=== PATIENT | male | born 1980 | race Caucasian/White ===

== ENCOUNTER 2019-10-06 17:23 | Emergency (ER) | payer BC, MEDICAID ==
[~2019-10-06] VITALS: Ht 180.3 cm; Wt 124.0 kg
[2019-10-06 17:35] VITALS: BP 130/89
[2019-10-06] MEDS ORDERED: SULF1TAB49 PO (18:07)
[2019-10-06] MEDS ORDERED: TRIA15CR61 TOP (18:11)
== END 2019-10-06 18:44 | disposition home or self-care (01) ==
LOC: ER 17:24
DX: L02.213 Cutaneous abscess of chest wall (principal); R21 Rash and other nonspecific skin eruption; Z88.0 Allergy status to penicillin; Z79.899 Other long term (current) drug therapy
CPT/HCPCS: 99283

== ENCOUNTER 2021-02-20 20:04 | Emergency (ER) | payer MEDICAID ==
[~2021-02-20] VITALS: Ht 180.3 cm; Wt 117.0 kg
[2021-02-20 20:25] VITALS: BP 146/95
[2021-02-20] MEDS ORDERED: LIDOcaine 1% 30ml preserv. free vial IJ ONE (22:25)
[2021-02-21] MEDS ORDERED: SULF1TAB49 PO (00:32)
[2021-02-21] MEDS ORDERED: sulfamethoxazole/trimethoprim DS (800/160mg) tablet PO ONE (00:35)
[2021-02-21] MEDS ORDERED: METF500T PO (00:41)
== END 2021-02-21 00:43 | disposition home or self-care (01) ==
LOC: ER 20:05
DX: L02.414 Cutaneous abscess of left upper limb (principal); E11.9 Type 2 diabetes mellitus without complications; Z88.0 Allergy status to penicillin; Z79.2 Long term (current) use of antibiotics; Z79.899 Other long term (current) drug therapy
CPT/HCPCS: 10060; 99283

== ENCOUNTER 2022-06-16 12:11 | Emergency (ER) | payer MEDICAID ==
[~2022-06-16] VITALS: Ht 180.3 cm; Wt 115.0 kg
[2022-06-16 12:42] VITALS: BP 120/85
[2022-06-16] MEDS ORDERED: CARB15DR91 LEFT EAR (14:18)
[2022-06-16] MEDS ORDERED: SODI30SP3 BOTHNARES (14:18)
== END 2022-06-16 14:45 | disposition home or self-care (01) ==
LOC: ER 12:12
DX: H61.23 Impacted cerumen, bilateral (principal); J06.9 Acute upper respiratory infection, unspecified; Z88.0 Allergy status to penicillin; Z79.899 Other long term (current) drug therapy
CPT/HCPCS: 69210; 99284; 99285

== ENCOUNTER 2022-07-19 16:01 | Emergency (ER) | payer MEDICAID ==
[~2022-07-19] VITALS: Ht 180.3 cm; Wt 104.5 kg
[~2022-07-19 16:01] MED LIST: CARB15DR91 LEFT EAR; SODI30SP3 BOTHNARES
[2022-07-19 17:59] LABS: BASOPHILS % (AUTO) 0.4 % (0-1); EOSINOPHILS # (AUTO) 0.3 X10'3 (0-0.9); EOSINOPHILS % (AUTO) 2.8 % (0-6); HEMATOCRIT 43.3 % (42.0-52.0); HEMOGLOBIN 14.6 g/dl (14.0-17.9); LYMPHOCYTES % (AUTO) 16.2 % (21-51); MEAN CORPUSCULAR HEMOGLOBIN 29.2 PG (27.0-31.0); MEAN CORPUSCULAR HGB CONC 33.8 g/dL (33.0-36.5); MEAN CORPUSCULAR VOLUME 86.3 FL (78-98); MONOCYTES # (AUTO) 0.8 X10'3 (0-0.9); MONOCYTES % (AUTO) 6.9 % (2-12); NEUTROPHILS % (AUTO) 73.7 % (42-75); PLATELET COUNT 121 X10'3 (140-440); RED BLOOD COUNT 5.02 X10'6 (4.70-6.10); RED CELL DISTRIBUTION WIDTH 14.3 % (11.5-14.5); WHITE BLOOD COUNT 12.2 X10'3 (4.5-11.0)
[2022-07-19 18:19] LABS: ALANINE AMINOTRANSFERASE 21 U/L (12-78); ALBUMIN 3.9 G/DL (3.4-5.0); ALBUMIN/GLOBULIN RATIO 1.2 (1.1-1.5); ALKALINE PHOSPHATASE 58 IU/L (46-116); ANION GAP 9 (8-16); ASPARTATE AMINO TRANSFERASE 9 U/L (10-37); BILIRUBIN,TOTAL 0.7 MG/DL (0.1-1.0); BLOOD UREA NITROGEN 12 MG/DL (7-18); CALCIUM 9.1 MG/DL (8.5-10.1); CHLORIDE 104 MMOL/L (99-107); CREATININE 0.92 MG/DL (0.60-1.10); GLUCOSE 231 MG/DL (70-104); POTASSIUM 3.9 MMOL/L (3.5-5.1); SODIUM 138 MMOL/L (135-145); TOTAL CARBON DIOXIDE 24.7 MMOL/L (24-32); TOTAL PROTEIN 7.2 G/DL (6.4-8.2); eGFR > 90 ML/MIN
[2022-07-19 19:00] LABS: ETHANOL < 0.010 GM/DL (0.0-0.010)
[2022-07-19 19:05] LABS: CLARITY,URINE CLEAR (Clear); COLOR,URINE YELLOW (Yellow); GLUCOSE, URINE 500 mg/dl (Neg); KETONES,URINE NEGATIVE (Neg); LEUKOCYTE ESTERASE ,URINE NEGATIVE (Neg); NITRITES, URINE NEGATIVE (Neg); OCCULT BLOOD,URINE NEGATIVE (Neg); PH,URINE 5.5 (4.8-8.0); PROTEIN,URINE TRACE mg/dl (Neg); UROBILINOGEN,URINE 0.2 E.U/dL (0.2-1.0)
[2022-07-19 19:10] LABS: UA COLLECTION TYPE NON-SPECIFIED
[2022-07-19 19:11] LABS: RBC,URINE 0-2 /HPF (0-2); WBC,URINE 0-4 /HPF (0-4)
[2022-07-19 19:12] LABS: BACTERIA,URINE FEW /HPF (Neg); FINE GRANULAR CAST 0-3 /LPF (NEGATIVE); MUCUS STRANDS NONE SEEN /LPF (Neg); SQUAMOUS EPITHELIAL CELL,UR FEW /LPF (FEW); URINE AMPHETAMINE SCREEN NEGATIVE (Neg); URINE BARBITUATE SCREEN NEGATIVE (Neg); URINE BENZODIAZEPINES SCREEN NEGATIVE (Neg); URINE CANNABINOID SCREEN NEGATIVE (Neg); URINE COCAINE SCREEN NEGATIVE (Neg); URINE METHADONE SCREEN NEGATIVE (Neg); URINE OPIATE SCREEN NEGATIVE (Neg); URINE PHENCYCLIDINE SCREEN NEGATIVE (Neg)
[2022-07-19 19:14] LABS: LARGE PLATELETS FEW; PLATELET ESTIMATE DECREASED
[2022-07-19] MEDS ORDERED: acetaminophen 325mg tablet PO ONE (19:20)
--- NOTE | 2022-07-19 21:37 | NUR ---
pt agitated Dr Echeverria talked with pt about hold and that someone from [facility] will be talking with him in the morning, pt given more warm blankets and a pillow. pt is now calm at the present Addendum: 07/19/22 at 2231 by JASON charted in error
--- NOTE | 2022-07-19 21:37 | NUR ---
pt agitated, talking with MD, pt advised that at this time that he will see Rosemary will see pt in the morning, pt given 3 warm blankets at this time. pt has also been given a sandwhich and juice and tolerated food with no difficulty.
--- NOTE | 2022-07-19 22:31 | NUR ---
pt sleeping, no distress noted at this time
--- NOTE | 2022-07-19 23:47 | NUR ---
pt sleeping no distress noted.
--- NOTE | 2022-07-20 00:36 | NUR ---
pt given sandwhich, juice and water, pt calm, speech normal, no thoughts of hurting self or others at this time.
--- NOTE | 2022-07-20 03:56 | NUR ---
pt sleeping, breathing even and unlabored at this time.
--- NOTE | 2022-07-20 04:00 | NUR ---
packet faxed top [facility]
--- NOTE | 2022-07-20 06:30 | NUR ---
Received pt. sleeping at the beginning of the shift, rise and fall of chest noted.
[2022-07-20] MEDS ORDERED: metFORMIN 500mg tablet PO SCH (07:00)
--- NOTE | 2022-07-20 07:53 | NUR ---
Pt's mother in to visit : Jasmyne . She would like to be called with any updates or when pt. is discharged as she plans to pick him up. Per pt's mother, pt. has been trying to get connected with counseling services, will endorse to [facility].
--- NOTE | 2022-07-20 08:30 | NUR ---
Pt. was sitting up in bed and cooperative with MH assessement completed by this sheet writer. He currently denies any S/I. However he does admit to having some S/I yesterday with thoughts of shooting himself. Pt. reports he does not have any access to weapons, and states, "My uncle has guns but they are all locked up." He goes on in a somewhat hyperverbal manner to talk about current stressors in his life regarding a current divorce, the previous of one of his sons, difficulty finding housing, and difficulty finding counseling services. Pt. states, "It just all became too much yesterday, but I feel fine now. It's a mistake that I'm here."
--- NOTE | 2022-07-20 09:24 | NUR ---
Med Recc completed with pt. by this commercial lines underwriter and per pt., he only takes Metformin 500mg Q AM and checks his BS Q AM prior to eating. Will endorse to Dr. Mac.
--- NOTE | 2022-07-20 10:32 | NUR ---
Pt. is sitting up in bed quietly at this time.
--- NOTE | 2022-07-20 11:32 | NUR ---
[facility] at bedside.
--- NOTE | 2022-07-20 12:19 | NUR ---
Per [facility], pt. will be discharged home with his mother who will be picking him up.
--- NOTE | 2022-07-20 12:23 | NUR ---
Pt. is sitting up in bed at this time, preparing for discharge.
--- NOTE | 2022-07-20 13:08 | NUR ---
Pt. was discharged home with his family who will be driving him. This group underwriter reviewed discharge instructions with pt. and he reported understanding. Tech reviewed pt's belongings with him and these items were returned to pt. Pt. is able to contract for safety.
[2022-07-20 13:13] VITALS: BP 110/59
[2022-07-21] MEDS ORDERED: metFORMIN 500mg tablet PO SCH (08:00)
== END 2022-07-20 13:39 ==
LOC: ER 16:01
DX: R45.851 Suicidal ideations (principal); F32.A Depression, unspecified
CPT/HCPCS: 36415; 80053; 80305; 80320; 81001; 82948; 84443; 85008; 85025; 99285

== ENCOUNTER 2023-08-13 14:30 | Emergency (ER) | payer MEDICAID ==
[~2023-08-13] VITALS: Ht 180.3 cm; Wt 122.5 kg
[2023-08-13 17:03] LABS: BASOPHILS % (AUTO) 0.2 % (0-1); EOSINOPHILS # (AUTO) 0.2 X10'3 (0-0.9); EOSINOPHILS % (AUTO) 2.1 % (0-6); HEMATOCRIT 43.7 % (42.0-52.0); HEMOGLOBIN 14.6 g/dl (14.0-17.9); LYMPHOCYTES # (AUTO) 1.3 X10'3 (1.1-4.8); MEAN CORPUSCULAR HEMOGLOBIN 29.2 PG (27.0-31.0); MEAN CORPUSCULAR HGB CONC 33.5 g/dL (33.0-36.5); MEAN CORPUSCULAR VOLUME 87.2 FL (78-98); MEAN PLATELET VOLUME 10.7 FL (7.4-10.4); MONOCYTES # (AUTO) 0.4 X10'3 (0-0.9); MONOCYTES % (AUTO) 4.9 % (2-12); NEUTROPHILS # (AUTO) 6.8 X10'3 (1.8-7.7); NEUTROPHILS % (AUTO) 77.8 % (42-75); PLATELET COUNT 125 X10'3 (140-440); RED BLOOD COUNT 5.01 X10'6 (4.70-6.10); RED CELL DISTRIBUTION WIDTH 14.2 % (11.5-14.5); WHITE BLOOD COUNT 8.8 X10'3 (4.5-11.0)
[2023-08-13 17:12] LABS: ALANINE AMINOTRANSFERASE 33 U/L (12-78); ALBUMIN 4.3 G/DL (3.4-5.0); ALBUMIN/GLOBULIN RATIO 1.3 (1.1-1.5); ALKALINE PHOSPHATASE 58 IU/L (46-116); ANION GAP 8 (8-16); ASPARTATE AMINO TRANSFERASE 15 U/L (10-37); BILIRUBIN,TOTAL 0.7 MG/DL (0.1-1.0); BLOOD UREA NITROGEN 10 MG/DL (7-18); CALCIUM 8.9 MG/DL (8.5-10.1); CHLORIDE 102 MMOL/L (99-107); CREATININE 0.77 MG/DL (0.60-1.10); GLUCOSE 163 MG/DL (70-104); LIPASE 42 U/L (16-77); POTASSIUM 3.8 MMOL/L (3.5-5.1); SODIUM 139 MMOL/L (135-145); TOTAL CARBON DIOXIDE 28.9 MMOL/L (24-32); TOTAL PROTEIN 7.7 G/DL (6.4-8.2); eCRCL 134 ML/MIN; eGFR > 90 ML/MIN
[2023-08-13 17:48] LABS: PLATELET ESTIMATE DECREASED
[2023-08-13 17:49] LABS: LARGE PLATELETS FEW
[2023-08-13] MEDS ORDERED: acetaminophen 325mg tablet PO ONE (20:05)
[2023-08-13] MEDS ORDERED: ondansetron 4mg rapidly disintigrating tab PO ONE (20:05)
[2023-08-13 20:11] VITALS: BP 156/80; PULSE 71; RESP 18; TEMP 98.4; O2SAT 98
[2023-08-13] MEDS ORDERED: ketorolac tromethamine 15mg/ml inj. IM ONE (20:15)
[2023-08-13 20:18] LABS: BILIRUBIN,URINE NEGATIVE (Neg); CLARITY,URINE SLIGHTLY CLOUDY (Clear); COLOR,URINE YELLOW (Yellow); GLUCOSE, URINE NEGATIVE (Neg); KETONES,URINE 15 mg/dl (Neg); LEUKOCYTE ESTERASE ,URINE NEGATIVE (Neg); NITRITES, URINE NEGATIVE (Neg); OCCULT BLOOD,URINE NEGATIVE (Neg); PH,URINE 5.5 (4.8-8.0); PROTEIN,URINE NEGATIVE (Neg); UROBILINOGEN,URINE 0.2 E.U/dL (0.2-1.0)
[2023-08-13 20:23] LABS: UA COLLECTION TYPE NON-SPECIFIED
[2023-08-13 20:26] LABS: BACTERIA,URINE FEW /HPF (Neg); MUCUS STRANDS MODERATE /LPF (Neg); RBC,URINE 0-2 /HPF (0-2); SQUAMOUS EPITHELIAL CELL,UR FEW /LPF (FEW); WBC,URINE 0-4 /HPF (0-4)
[2023-08-13 20:27] LABS: CELLULAR CAST 0-4 /LPF (NEGATIVE); HYALINE CASTS 0-3 /LPF (NEGATIVE); TRANSITIONAL EPI CELLS,URINE MODERATE /HPF
[2023-08-13] MEDS ORDERED: normal saline 1000ml 1,000 ML IV ONE (20:40)
[2023-08-13] MEDS ORDERED: ONDA4TAB12 PO (20:51)
== END 2023-08-13 22:18 | disposition home or self-care (01) ==
LOC: ER 14:31
DX: R51.9 Headache, unspecified (principal); R11.2 Nausea with vomiting, unspecified; H53.149 Visual discomfort, unspecified; E11.9 Type 2 diabetes mellitus without complications; Z88.0 Allergy status to penicillin; Z79.899 Other long term (current) drug therapy
CPT/HCPCS: 36415; 80053; 81001; 82948; 83690; 85008; 85025; 96372; 99283; J1885

== ENCOUNTER 2023-12-26 10:33 | Inpatient (IN) | payer MEDICAID ==
[~2023-12-26] VITALS: Ht 180.3 cm; Wt 134.0 kg
[~2023-12-26 10:33] MED LIST changes: +AMLO5TAB16 PO; +ASPI-1071 PO; +ATOR10TA PO; -CARB15DR91 LEFT EAR; +CLOP75TA34 PO; +ESCI-8 PO; +LISI10TA27 PO; +METF-517 PO; -SODI30SP3 BOTHNARES
[2023-12-26] MEDS: ondansetron 4mg rapidly disintigrating tab PO ONE (11:52)
[2023-12-26 12:11] LABS: BASOPHILS # (AUTO) 0.1 X10'3 (0-0.2); BASOPHILS % (AUTO) 0.7 % (0-1); EOSINOPHILS % (AUTO) 0.3 % (0-6); HEMOGLOBIN 12.8 g/dl (14.0-17.9); LYMPHOCYTES # (AUTO) 1.1 X10'3 (1.1-4.8); LYMPHOCYTES % (AUTO) 6.1 % (21-51); MEAN CORPUSCULAR HEMOGLOBIN 29.5 PG (27.0-31.0); MEAN CORPUSCULAR HGB CONC 32.7 g/dL (33.0-36.5); MEAN CORPUSCULAR VOLUME 90.2 FL (78-98); MEAN PLATELET VOLUME 10.1 FL (7.4-10.4); MONOCYTES # (AUTO) 1.5 X10'3 (0-0.9); MONOCYTES % (AUTO) 8.6 % (2-12); NEUTROPHILS # (AUTO) 14.9 X10'3 (1.8-7.7); NEUTROPHILS % (AUTO) 84.3 % (42-75); PLATELET COUNT 185 X10'3 (140-440); RED BLOOD COUNT 4.33 X10'6 (4.70-6.10); RED CELL DISTRIBUTION WIDTH 14.4 % (11.5-14.5); WHITE BLOOD COUNT 17.6 X10'3 (4.5-11.0)
[2023-12-26 12:24] LABS: ALKALINE PHOSPHATASE 73 IU/L (46-116); ANION GAP 11 (8-16); ASPARTATE AMINO TRANSFERASE 7 U/L (10-37); BILIRUBIN,DIRECT 0.1 MG/DL (0-0.3); BILIRUBIN,TOTAL 0.5 MG/DL (0.1-1.0); BLOOD UREA NITROGEN 29 MG/DL (7-18); BUN/CREATININE RATIO 27.1 (10.0-20.0); CALCIUM 8.3 MG/DL (8.5-10.1); CHLORIDE 89 MMOL/L (99-107); CREATININE 1.07 MG/DL (0.60-1.10); LIPASE 18 U/L (16-77); POTASSIUM 4.3 MMOL/L (3.5-5.1); SODIUM 122 MMOL/L (135-145); TOTAL PROTEIN 7.6 G/DL (6.4-8.2); eCRCL 97 ML/MIN; eGFR 76 ML/MIN
[2023-12-26 12:29] LABS: ALANINE AMINOTRANSFERASE 14 U/L (12-78)
[2023-12-26 12:36] LABS: GLUCOSE 443 MG/DL (70-104)
[2023-12-26 13:06] LABS: ALBUMIN 2.7 G/DL (3.4-5.0); ALBUMIN/GLOBULIN RATIO 0.6 (1.1-1.5)
[2023-12-26] MEDS: normal saline 1000ML IV soln IVB ONE (14:09)
[2023-12-26] MEDS: diphenhydrAMINE 50 mg/ml inj IV ONE (14:09)
[2023-12-26] MEDS: morphine 4 MG/ML inj SYRINge IV ONE (14:10)
[2023-12-26] MEDS: proCHLORperazine 10 MG/2 ml inj IV ONE (14:10)
[2023-12-26 14:16] LABS: ACETONE SMALL (NEGATIVE)
[2023-12-26] MEDS: normal saline 1000ml 1,000 ML IV ONE ×2 (14:20→15:40)
[2023-12-26] MEDS: Insulin ASPART (NovoLOG) pen SQ ONE (14:34)
[2023-12-26 14:35] LABS: BILIRUBIN,URINE NEGATIVE (Neg); CLARITY,URINE CLEAR (Clear); COLOR,URINE YELLOW (Yellow); GLUCOSE, URINE >=1000 mg/dl (Neg); KETONES,URINE 15 mg/dl (Neg); LEUKOCYTE ESTERASE ,URINE NEGATIVE (Neg); NITRITES, URINE NEGATIVE (Neg); OCCULT BLOOD,URINE NEGATIVE (Neg); PROTEIN,URINE NEGATIVE (Neg); UROBILINOGEN,URINE 0.2 E.U/dL (0.2-1.0)
[2023-12-26] MEDS: INSULIN LISPRO 100 UNIT/ML INSULN.PEN MULTI-DOSE SQ ONE ×2 (14:42→17:17)
[2023-12-26 14:49] LABS: UA COLLECTION TYPE CLN CATCH MIDSTREAM
[2023-12-26 14:54] LABS: BACTERIA,URINE 1+ /HPF (Neg); RBC,URINE 0-2 /HPF (0-2); SQUAMOUS EPITHELIAL CELL,UR FEW /LPF (FEW); WBC,URINE 0-4 /HPF (0-4)
[2023-12-26] MEDS ORDERED: CefTRIAXone 2gm/D5W 50ml BAG 50 ML IV SCH (15:55)
[2023-12-26] MEDS: azithromycin/NS 500mg/250ml 250 ML IV ONE (16:09)
[2023-12-26] MEDS: CefTRIAXone 2gm/D5W 50ml BAG 50 ML IV ONE (16:09)
[2023-12-26] MEDS ORDERED: magnesium 2GM in 50ml NS 50 ML IV PRN (16:15)
[2023-12-26] MEDS ORDERED: glucagon, human recombinant 1mg kit SUBCUT PRN (16:15)
[2023-12-26] MEDS ORDERED: acetaminophen 325mg tablet PO PRN ×2 (16:15)
[2023-12-26] MEDS ORDERED: DEXTROSE 15 GM of carb/4 tabs (each vial/BOTTLE has 4 tablets) PO PRN ×2 (16:15)
[2023-12-26] MEDS ORDERED: magnesium 4gm in 100ml NS 100 ML IV PRN (16:15)
[2023-12-26] MEDS ORDERED: dextrose 50%-water 50ml dispensing syringe IV PRN ×2 (16:15)
[2023-12-26] MEDS ORDERED: potassium Cl 20 mEq SR tablet PO PRN ×2 (16:15)
[2023-12-26] MEDS ORDERED: ondansetron/PF 4mg/2ml inj IV PRN (16:15)
[2023-12-26] MEDS ORDERED: magnesium hydroxide 30ml (MOM) UD suspension PO PRN (16:15)
[2023-12-26] MEDS ORDERED: proCHLORperazine 10 MG/2 ml inj IV PRN (16:15)
[2023-12-26] MEDS ORDERED: potassium Cl 40MEQ/1/2NS 520ml 520 ML IV PRN (16:15)
[2023-12-26] MEDS ORDERED: mag hydrox/Alum hydrox/simeth 30ml oral suspension PO PRN (16:15)
[2023-12-26] MEDS ORDERED: HYDROcodone/acetaminophen 5mg/325mg tablet PO PRN (16:15)
[2023-12-26] MEDS: normal saline 1000ml 1,000 ML IV SCH (16:40)
[2023-12-26] MEDS: INSULIN LISPRO 100 UNIT/ML INSULN.PEN MULTI-DOSE SQ SCH (16:51)
[2023-12-26] MEDS: HYDROmorphone 1 mg/ml syringe IV PRN (17:18)
[2023-12-26] MEDS ORDERED: CHLO25TA10 PO (17:46)
[2023-12-26] MEDS: K and/or MAG REPLACEMENT MC SCH (20:00)
[2023-12-26] MEDS: docusate sod 100mg capsule PO SCH (20:00)
[2023-12-26] MEDS: enoxaparin 40mg/0.4ml syringe SQ SCH (20:44)
[2023-12-26] MEDS: diatr meglu/diatrizoate 30ml oral sol.-(3 dose) bottle PO SCH (21:53)
[2023-12-26] MEDS: insulin glargine (Lantus) pen - multi-dose SQ SCH (22:12)
[2023-12-26] MEDS: HYDROmorphone inj. 0.5 MG/0.5 ML DISP.SYRIN IV PRN (22:16)
[2023-12-26 23:55] VITALS: BP 96/56; PULSE 81; RESP 16; TEMP 98; O2SAT 93
[2023-12-27 00:30] VITALS: RESP 18; O2SAT 93
[2023-12-27 06:00] VITALS: BP 103/59; PULSE 105; RESP 18; TEMP 99.2; O2SAT 93
[2023-12-27] MEDS: HYDROcodone/acetaminophen 10/325mg tab PO PRN (06:10)
[2023-12-27 08:17] LABS: BASOPHILS % (AUTO) 0.3 % (0-1); EOSINOPHILS # (AUTO) 0.1 X10'3 (0-0.9); EOSINOPHILS % (AUTO) 0.6 % (0-6); HEMATOCRIT 31.9 % (42.0-52.0); HEMOGLOBIN 10.7 g/dl (14.0-17.9); LYMPHOCYTES # (AUTO) 1.5 X10'3 (1.1-4.8); LYMPHOCYTES % (AUTO) 9.5 % (21-51); MEAN CORPUSCULAR HEMOGLOBIN 29.7 PG (27.0-31.0); MEAN CORPUSCULAR HGB CONC 33.4 g/dL (33.0-36.5); MEAN CORPUSCULAR VOLUME 88.8 FL (78-98); MEAN PLATELET VOLUME 10.3 FL (7.4-10.4); MONOCYTES # (AUTO) 2.1 X10'3 (0-0.9); MONOCYTES % (AUTO) 12.6 % (2-12); NEUTROPHILS # (AUTO) 12.6 X10'3 (1.8-7.7); PLATELET COUNT 158 X10'3 (140-440); RED CELL DISTRIBUTION WIDTH 14.3 % (11.5-14.5); WHITE BLOOD COUNT 16.4 X10'3 (4.5-11.0)
[2023-12-27 09:06] LABS: ALANINE AMINOTRANSFERASE 8 U/L (12-78); ALBUMIN 2.2 G/DL (3.4-5.0); ALBUMIN/GLOBULIN RATIO 0.6 (1.1-1.5); ALKALINE PHOSPHATASE 60 IU/L (46-116); ANION GAP 7 (8-16); ASPARTATE AMINO TRANSFERASE 4 U/L (10-37); BILIRUBIN,TOTAL 0.4 MG/DL (0.1-1.0); BLOOD UREA NITROGEN 32 MG/DL (7-18); BUN/CREATININE RATIO 30.2 (10.0-20.0); CALCIUM 7.5 MG/DL (8.5-10.1); CHLORIDE 94 MMOL/L (99-107); CREATININE 1.06 MG/DL (0.60-1.10); GLUCOSE 265 MG/DL (70-104); MAGNESIUM 1.9 MG/DL (1.5-2.4); POTASSIUM 3.8 MMOL/L (3.5-5.1); SODIUM 127 MMOL/L (135-145); TOTAL PROTEIN 6.2 G/DL (6.4-8.2); eCRCL 98 ML/MIN; eGFR 77 ML/MIN
[2023-12-27 09:12] LABS: HEMOGLOBIN A1C 9.7 % (4.5-6.2)
[2023-12-27 09:15] VITALS: RESP 18; O2SAT 95
[2023-12-27] MEDS: lisinopril 10 MG tablet PO SCH (09:25)
[2023-12-27] MEDS: CefTRIAXone/D5W-Rocephin 1gm 50 ML IV SCH (09:34)
[2023-12-27] MEDS: aspirin 81mg, enteric-coated 1 TAB TABLET.DR PO SCH (09:38)
[2023-12-27] MEDS: ESCITALOPRAM 10 mg tablet 10 MG TABLET PO SCH (09:44)
[2023-12-27 10:00] VITALS: BP 108/64; PULSE 86; RESP 18; TEMP 97.8; O2SAT 96
[2023-12-27] MEDS: azithromycin/NS 500mg/250ml 250 ML IV SCH (11:28)
[2023-12-27] MEDS ORDERED: iohexol 300mg/ml 100ml inj. ONE (11:55)
[2023-12-27] MEDS: metroNIDAZOLE-Flagyl 500mg/NS 100 ML IV SCH (16:33)
[2023-12-27 18:00] VITALS: BP 109/70; PULSE 92; RESP 16; TEMP 97.9; O2SAT 93
[2023-12-27] MEDS: MESSAGE TO NURSING PO ONE ×3 (18:00)
[2023-12-27] MEDS: MESSAGE TO PHARMACY IJ ONE (18:00)
[2023-12-27 19:39] LABS: APTT 29 SECONDS (22-32); INR 1.1 INR; PROTHROMBIN TIME 11.9 SECONDS (9.0-12.0)
[2023-12-27 22:00] VITALS: BP 111/72; PULSE 98; RESP 16; TEMP 98.4; O2SAT 94
[2023-12-28] VITALS (16 sets, daily range): BP systolic 101–187; BP diastolic 58–104; PULSE 92–119; RESP 12–32; TEMP 98.4–98.8; O2SAT 94–99
[2023-12-28 06:21] LABS: BASOPHILS # (AUTO) 0.1 X10'3 (0-0.2); BASOPHILS % (AUTO) 0.3 % (0-1); EOSINOPHILS # (AUTO) 0.2 X10'3 (0-0.9); EOSINOPHILS % (AUTO) 1.1 % (0-6); HEMATOCRIT 34.4 % (42.0-52.0); HEMOGLOBIN 11.3 g/dl (14.0-17.9); LYMPHOCYTES # (AUTO) 1.4 X10'3 (1.1-4.8); LYMPHOCYTES % (AUTO) 8.1 % (21-51); MEAN CORPUSCULAR HEMOGLOBIN 29.5 PG (27.0-31.0); MEAN CORPUSCULAR HGB CONC 32.9 g/dL (33.0-36.5); MEAN CORPUSCULAR VOLUME 89.6 FL (78-98); MEAN PLATELET VOLUME 10.4 FL (7.4-10.4); MONOCYTES % (AUTO) 11.3 % (2-12); NEUTROPHILS # (AUTO) 13.8 X10'3 (1.8-7.7); NEUTROPHILS % (AUTO) 79.2 % (42-75); PLATELET COUNT 188 X10'3 (140-440); RED BLOOD COUNT 3.84 X10'6 (4.70-6.10); RED CELL DISTRIBUTION WIDTH 14.3 % (11.5-14.5); WHITE BLOOD COUNT 17.4 X10'3 (4.5-11.0)
[2023-12-28] MEDS: mupirocin 2% nasal ointment 1gm UD NS SCH ×2 (07:00→22:00)
[2023-12-28 07:06] LABS: ALANINE AMINOTRANSFERASE 12 U/L (12-78); ALBUMIN 2.2 G/DL (3.4-5.0); ALBUMIN/GLOBULIN RATIO 0.5 (1.1-1.5); ALKALINE PHOSPHATASE 108 IU/L (46-116); ANION GAP 8 (8-16); ASPARTATE AMINO TRANSFERASE 5 U/L (10-37); BILIRUBIN,TOTAL 0.5 MG/DL (0.1-1.0); BLOOD UREA NITROGEN 23 MG/DL (7-18); BUN/CREATININE RATIO 27.1 (10.0-20.0); CALCIUM 7.3 MG/DL (8.5-10.1); CHLORIDE 93 MMOL/L (99-107); CREATININE 0.85 MG/DL (0.60-1.10); GLUCOSE 215 MG/DL (70-104); MAGNESIUM 2.1 MG/DL (1.5-2.4); POTASSIUM 3.8 MMOL/L (3.5-5.1); SODIUM 128 MMOL/L (135-145); TOTAL CARBON DIOXIDE 26.7 MMOL/L (24-32); TOTAL PROTEIN 6.5 G/DL (6.4-8.2); eCRCL 122 ML/MIN; eGFR > 90 ML/MIN
[2023-12-28] MEDS: MESSAGE TO NURSING PO ONE (09:46)
[2023-12-28] MEDS: MESSAGE TO NURSING IV SCH (09:46)
[2023-12-28] MEDS: insulin glargine (Lantus) pen - multi-dose SQ ONE (11:02)
[2023-12-28] MEDS ORDERED: MIDAZolam 1 MG/ML 5ML VIAL ONE (18:24)
[2023-12-28] MEDS ORDERED: fentaNYL /PF 50mcg/ml 5ml ampule ONE (18:24)
[2023-12-28] MEDS ORDERED: rocuronium 10mg/ml inj IV ONE ×2 (18:25)
[2023-12-28] MEDS ORDERED: propofol inj 20 ML IV ONE (18:25)
[2023-12-28] MEDS ORDERED: sevoflurane 250ml liquid IH ONE (18:28)
[2023-12-28] MEDS ORDERED: ringers solution, lacted 1,000 ML IV SCH (19:45)
[2023-12-28] MEDS ORDERED: ondansetron/PF 4mg/2ml inj IV PRN (19:45)
[2023-12-28] MEDS ORDERED: HYDROmorphone/PF 0.2 MG/ML SYRINGE IV PRN ×2 (19:45)
[2023-12-28] MEDS ORDERED: morphine 2 MG/ML inj. syringe IV PRN (19:45)
[2023-12-28] MEDS ORDERED: morphine 4 MG/ML inj SYRINge IV PRN (19:45)
[2023-12-28] MEDS ORDERED: metroNIDAZOLE-Flagyl 500mg/NS 100 ML IV ONE (20:33)
[2023-12-28] MEDS ORDERED: CefTRIAXone 2000mg inj ONE (20:33)
[2023-12-28] MEDS: atorvastatin 10mg tablet PO SCH (21:00)
[2023-12-28] MEDS ORDERED: insulin glargine (Lantus) pen - multi-dose SQ SCH (21:00)
[2023-12-28] MEDS ORDERED: magnesium hydroxide 30ml (MOM) UD suspension PO PRN (21:40)
[2023-12-28] MEDS ORDERED: insulin glargine (Lantus) pen - multi-dose SQ PRN (21:40)
[2023-12-28] MEDS ORDERED: potassium Cl 40MEQ/1/2NS 520ml 520 ML IV PRN (21:40)
[2023-12-28] MEDS ORDERED: Neutra Phos packet PO PRN (21:40)
[2023-12-28] MEDS ORDERED: HYDROcodone/acetaminophen 10/325mg tab PO PRN (21:40)
[2023-12-28] MEDS ORDERED: niCARDipine-NS 40mg/200ml IVPB 200 ML IV PRN ×2 (21:40→22:05)
[2023-12-28] MEDS ORDERED: magnesium 4gm in 100ml NS 100 ML IV PRN (21:40)
[2023-12-28] MEDS ORDERED: metoclopramide 5 mg/ml inj IV PRN (21:40)
[2023-12-28] MEDS ORDERED: sodium phosphate inj. 30 MMOL in dextrose 5%-water 250 ML IV PRN (21:40)
[2023-12-28] MEDS ORDERED: potassium Cl 20 mEq SR tablet PO PRN (21:40)
[2023-12-28] MEDS ORDERED: mineral oil 133ml enema RC PRN (21:40)
[2023-12-28] MEDS ORDERED: potassium CL 10mEq/100ml bag 100 ML IV PRN (21:40)
[2023-12-28] MEDS ORDERED: sodium phosphate inj. 15 MMOL in dextrose 5%-water 250 ML IV PRN (21:40)
[2023-12-28] MEDS ORDERED: dextrose 50%-water 50ml dispensing syringe IV PRN (21:40)
[2023-12-28] MEDS: metroNIDAZOLE-Flagyl 500mg/NS 100 ML IV SCH (21:40)
[2023-12-28] MEDS ORDERED: bisacodyl 10mg suppository rectal RC PRN (21:40)
[2023-12-28] MEDS ORDERED: acetaminophen 325mg tablet PO PRN (21:40)
[2023-12-28] MEDS ORDERED: FENTANYL-0.9 % NACL/PF 100 ML IV SCH (21:50)
[2023-12-28] MEDS: propofol 1000mg/100ml bottle 100 ML IV SCH (21:50)
[2023-12-28] MEDS: propofol 1000mg/100ml bottle 100 ML IV ONE (21:58)
[2023-12-28] MEDS ORDERED: dexmedetomidine inj. 400 MCG in normal saline 100ml IV soln 96 ML IV SCH (22:10)
[2023-12-28 22:32] LABS: BASOPHILS # (AUTO) 0.1 X10'3 (0-0.2); BASOPHILS % (AUTO) 0.3 % (0-1); EOSINOPHILS # (AUTO) 0.2 X10'3 (0-0.9); EOSINOPHILS % (AUTO) 1.1 % (0-6); HEMATOCRIT 32.1 % (42.0-52.0); HEMOGLOBIN 10.5 g/dl (14.0-17.9); LYMPHOCYTES # (AUTO) 1.6 X10'3 (1.1-4.8); LYMPHOCYTES % (AUTO) 8.7 % (21-51); MEAN CORPUSCULAR HEMOGLOBIN 29.3 PG (27.0-31.0); MEAN CORPUSCULAR HGB CONC 32.8 g/dL (33.0-36.5); MEAN CORPUSCULAR VOLUME 89.2 FL (78-98); MEAN PLATELET VOLUME 9.4 FL (7.4-10.4); MONOCYTES # (AUTO) 1.7 X10'3 (0-0.9); NEUTROPHILS # (AUTO) 15.3 X10'3 (1.8-7.7); NEUTROPHILS % (AUTO) 80.9 % (42-75); PLATELET COUNT 216 X10'3 (140-440); RED CELL DISTRIBUTION WIDTH 14.6 % (11.5-14.5); WHITE BLOOD COUNT 18.9 X10'3 (4.5-11.0)
[2023-12-28] MEDS: dexmedetomidine inj. 400 MCG in normal saline 100ml IV soln 96 ML IV PRN (22:32)
[2023-12-28] MEDS: niCARDipine-NS 40mg/200ml IVPB 200 ML IV ONE (22:35)
[2023-12-28 22:42] LABS: ALANINE AMINOTRANSFERASE 8 U/L (12-78); ALBUMIN 2.2 G/DL (3.4-5.0); ALBUMIN/GLOBULIN RATIO 0.6 (1.1-1.5); ALKALINE PHOSPHATASE 70 IU/L (46-116); ANION GAP 7 (8-16); ASPARTATE AMINO TRANSFERASE 5 U/L (10-37); BILIRUBIN,TOTAL 0.8 MG/DL (0.1-1.0); BLOOD UREA NITROGEN 19 MG/DL (7-18); BUN/CREATININE RATIO 23.2 (10.0-20.0); CALCIUM 7.8 MG/DL (8.5-10.1); CHLORIDE 98 MMOL/L (99-107); CREATININE 0.82 MG/DL (0.60-1.10); GLUCOSE 210 MG/DL (70-104); PHOSPHORUS 3.9 MG/DL (2.3-4.5); POTASSIUM 3.6 MMOL/L (3.5-5.1); SODIUM 132 MMOL/L (135-145); TOTAL CARBON DIOXIDE 26.9 MMOL/L (24-32); TOTAL PROTEIN 5.8 G/DL (6.4-8.2); eCRCL 126 ML/MIN; eGFR > 90 ML/MIN
[2023-12-28] MEDS: acetaminophen 1,000mg/100ml IV 100 ML IV ONE (22:42)
[2023-12-28] MEDS: fentaNYL/PF 50MCG/1 ML 2ML syringe IV PRN (22:42)
[2023-12-28] MEDS: acetylcysteine 200 MG/ml 4ml vial INH SCH (23:00)
[2023-12-28 23:04] LABS: APTT 28 SECONDS (22-32); FIBRINOGEN 704 MG/DL (177-424); INR 1.2 INR; PROTHROMBIN TIME 12.8 SECONDS (9.0-12.0)
[2023-12-28] MEDS: Insulin Reg/NS 100units/100mL 100 ML IV SCH (23:04)
[2023-12-28] MEDS: sodium chloride 0.45% 1,000 ML IV SCH (23:12)
[2023-12-28] MEDS: albuterol 2.5 MG/3 ML nebule NEB SCH (23:24)
[2023-12-28 23:35] LABS: ABG BASE EXCESS -3.7 mmol/L (-2.0-2.0); ABG HCO3 20.2 mmol/L (22.0-26.0); ABG OXYGEN SATURATION 98.8 % (94-97); ABG PCO2 (T) 32.9 mmHg (35.0-48.0); ABG PH (T) 7.407 (7.340-7.440); FCOHb 0.3 % (0.0-3.9); FHHb 1.2 % (0.0-5.0); FMetHb 0.3 % (0.0-1.5); FO2Hb 98.2 % (94-97); PATIENT TEMPERATURE 37.3; PEEP 10 cm H2O; RESPIRATORY RATE 12 b/min; TIDAL VOLUME 500 mL; TOTAL HEMOGLOBIN 11.2 G/dl (14.0-17.9)
[2023-12-29] VITALS (42 sets, daily range): BP systolic 85–149; BP diastolic 52–83; PULSE 62–86; RESP 12–23; O2SAT 72–100
[2023-12-29] MEDS: albumin (human) 25% 100 ML IV solution IV ONE (00:07)
[2023-12-29] MEDS: albumin (Human) 5% 250ml 250 ML IV PRN (00:09)
[2023-12-29] MEDS: sodium bicarbonate (8.4%) 1 mEq/ml syringe IV ONE (00:14)
[2023-12-29] MEDS: albumin (human) 25% 100ml IV 100 ML IV ONE (00:15)
[2023-12-29] MEDS: sodium bicarbonate (8.4%) 1 mEq/ml syringe ONE (00:19)
[2023-12-29] MEDS: CALCIUM GLUC 1gm/50ml NACL,iso 50 ML IV SCH (00:23)
[2023-12-29] MEDS: CALCIUM GLUC 1gm/50ml NACL,iso 50 ML IV ONE (00:24)
[2023-12-29] MEDS: ketorolac tromethamine 15mg/ml inj. IV SCH (02:35)
[2023-12-29] MEDS: ipratropium/albuterol 3ml nebule NEB SCH (02:58)
[2023-12-29 04:45] LABS: BASOPHILS # (AUTO) 0.1 X10'3 (0-0.2); BASOPHILS % (AUTO) 0.8 % (0-1); EOSINOPHILS # (AUTO) 0.1 X10'3 (0-0.9); EOSINOPHILS % (AUTO) 0.5 % (0-6); HEMATOCRIT 27.2 % (42.0-52.0); HEMOGLOBIN 9.1 g/dl (14.0-17.9); LYMPHOCYTES # (AUTO) 0.8 X10'3 (1.1-4.8); LYMPHOCYTES % (AUTO) 6.1 % (21-51); MEAN CORPUSCULAR HEMOGLOBIN 29.5 PG (27.0-31.0); MEAN CORPUSCULAR HGB CONC 33.3 g/dL (33.0-36.5); MEAN CORPUSCULAR VOLUME 88.7 FL (78-98); MEAN PLATELET VOLUME 9.6 FL (7.4-10.4); MONOCYTES # (AUTO) 0.9 X10'3 (0-0.9); MONOCYTES % (AUTO) 6.8 % (2-12); NEUTROPHILS # (AUTO) 11.2 X10'3 (1.8-7.7); NEUTROPHILS % (AUTO) 85.8 % (42-75); PLATELET COUNT 157 X10'3 (140-440); RED BLOOD COUNT 3.07 X10'6 (4.70-6.10); RED CELL DISTRIBUTION WIDTH 14.3 % (11.5-14.5)
[2023-12-29 04:50] LABS: APTT 27 SECONDS (22-32); INR 1.2 INR; PROTHROMBIN TIME 12.5 SECONDS (9.0-12.0)
[2023-12-29 04:51] LABS: ALANINE AMINOTRANSFERASE 7 U/L (12-78); ALBUMIN 2.4 G/DL (3.4-5.0); ALBUMIN/GLOBULIN RATIO 0.8 (1.1-1.5); ALKALINE PHOSPHATASE 58 IU/L (46-116); ANION GAP 5 (8-16); ASPARTATE AMINO TRANSFERASE 5 U/L (10-37); BILIRUBIN,TOTAL 0.6 MG/DL (0.1-1.0); BLOOD UREA NITROGEN 21 MG/DL (7-18); BUN/CREATININE RATIO 20.2 (10.0-20.0); CALCIUM 7.7 MG/DL (8.5-10.1); CHLORIDE 99 MMOL/L (99-107); CREATININE 1.04 MG/DL (0.60-1.10); GLUCOSE 170 MG/DL (70-104); MAGNESIUM 2.1 MG/DL (1.5-2.4); PHOSPHORUS 4.2 MG/DL (2.3-4.5); POTASSIUM 3.6 MMOL/L (3.5-5.1); SODIUM 134 MMOL/L (135-145); TOTAL PROTEIN 5.5 G/DL (6.4-8.2); TRIGLYCERIDES 154 MG/DL (20-135); eCRCL 100 ML/MIN; eGFR 79 ML/MIN
[2023-12-29 05:05] LABS: ABG BASE EXCESS 3.2 mmol/L (-2.0-2.0); ABG HCO3 27.8 mmol/L (22.0-26.0); ABG OXYGEN SATURATION 98.9 % (94-97); ABG PCO2 (T) 42.1 mmHg (35.0-48.0); ABG PH (T) 7.436 (7.340-7.440); ABG PO2 (T) 127.4 mmHg (75.0-100.0); FCOHb 0.3 % (0.0-3.9); FHHb 1.1 % (0.0-5.0); FMetHb 0.3 % (0.0-1.5); FO2Hb 98.3 % (94-97); PATIENT TEMPERATURE 36.9; PEEP 10 cm H2O; RESPIRATORY RATE 12 b/min; TIDAL VOLUME 500 mL
[2023-12-29] MEDS: ringers solution, lacted 1,000 ML IV SCH (06:45)
[2023-12-29] MEDS: normal saline 1000ml 1,000 ML IV SCH (07:50)
[2023-12-29] MEDS: vancomycin/NS 1 GM ADD-VANTAGE 250 ML IV SCH (09:51)
[2023-12-29] MEDS: CefTRIAXone 2gm/D5W 50ml BAG 50 ML IV SCH (09:51)
[2023-12-29] MEDS: gabapentin 300mg capsule PO SCH (09:52)
[2023-12-29] MEDS: sennosides/docusate sodium tablet PO SCH (09:53)
[2023-12-29] MEDS: albumin (Human) 5% 250ml 250 ML IV ONE ×2 (14:20→16:22)
[2023-12-29] MEDS ORDERED: HYDROmorphone inj. 0.5 MG/0.5 ML DISP.SYRIN IV PRN (15:55)
[2023-12-29] MEDS: ESCITALOPRAM 10 mg tablet 10 MG TABLET PO SCH (16:22)
[2023-12-30] VITALS (43 sets, daily range): BP systolic 102–148; BP diastolic 54–78; PULSE 68–91; RESP 16–25; O2SAT 95–99
[2023-12-30] MEDS: acetaminophen 325mg tablet PO PRN (00:09)
[2023-12-30 02:59] LABS: ABG BASE EXCESS 0.8 mmol/L (-2.0-2.0); ABG HCO3 24.1 mmol/L (22.0-26.0); ABG OXYGEN SATURATION 96.9 % (94-97); ABG PCO2 (T) 35.5 mmHg (35.0-48.0); ABG PH (T) 7.455 (7.340-7.440); FCOHb 0.3 % (0.0-3.9); FHHb 3.1 % (0.0-5.0); FO2Hb 96.6 % (94-97); MODE VENT-SIMV/VC; PATIENT TEMPERATURE 38.2; PEEP 12 cm H2O; RESPIRATORY RATE 12 b/min; TIDAL VOLUME 500 mL; TOTAL HEMOGLOBIN 9.8 G/dl (14.0-17.9)
[2023-12-30 03:46] LABS: BASOPHILS # (AUTO) 0.1 X10'3 (0-0.2); BASOPHILS % (AUTO) 0.5 % (0-1); EOSINOPHILS # (AUTO) 0.3 X10'3 (0-0.9); EOSINOPHILS % (AUTO) 3.1 % (0-6); HEMATOCRIT 26.5 % (42.0-52.0); HEMOGLOBIN 8.8 g/dl (14.0-17.9); LYMPHOCYTES # (AUTO) 1.2 X10'3 (1.1-4.8); LYMPHOCYTES % (AUTO) 11.6 % (21-51); MEAN CORPUSCULAR HEMOGLOBIN 29.5 PG (27.0-31.0); MEAN CORPUSCULAR HGB CONC 33.1 g/dL (33.0-36.5); MEAN CORPUSCULAR VOLUME 89.1 FL (78-98); MEAN PLATELET VOLUME 9.4 FL (7.4-10.4); MONOCYTES % (AUTO) 9.7 % (2-12); NEUTROPHILS # (AUTO) 7.7 X10'3 (1.8-7.7); NEUTROPHILS % (AUTO) 75.1 % (42-75); PLATELET COUNT 164 X10'3 (140-440); RED BLOOD COUNT 2.98 X10'6 (4.70-6.10); RED CELL DISTRIBUTION WIDTH 14.4 % (11.5-14.5); WHITE BLOOD COUNT 10.3 X10'3 (4.5-11.0)
[2023-12-30 03:59] LABS: ALBUMIN 2.1 G/DL (3.4-5.0); ANION GAP 7 (8-16); BLOOD UREA NITROGEN 20 MG/DL (7-18); CHLORIDE 102 MMOL/L (99-107); CREATININE 0.69 MG/DL (0.60-1.10); GLUCOSE 101 MG/DL (70-104); MAGNESIUM 2.1 MG/DL (1.5-2.4); PHOSPHORUS 3.9 MG/DL (2.3-4.5); POTASSIUM 3.4 MMOL/L (3.5-5.1); SODIUM 137 MMOL/L (135-145); TOTAL CARBON DIOXIDE 27.9 MMOL/L (24-32); eCRCL 150 ML/MIN; eGFR > 90 ML/MIN
[2023-12-30] MEDS: pantoprazole 40mg Tablet.DR PO SCH (07:43)
[2023-12-30] MEDS: fluconazole-Diflucan 200mg/NS 100 ML IV ONE (11:00)
[2023-12-30] MEDS: epiNEPHrine 0.1mg/ml 10ml syringe ONE (11:07)
[2023-12-30] MEDS: furosemide 20 MG/2 ML vial IV SCH (11:40)
[2023-12-30] MEDS: calcium gluconate inj. 2 GM in normal saline 100ml IV soln 100 ML IV ONE (11:40)
[2023-12-30] MEDS: iron sucrose complex injection 200 MG in normal saline 100ml IV soln 100 ML IV SCH (11:45)
[2023-12-30] MEDS ORDERED: Neutra Phos packet NG PRN (14:43)
[2023-12-30] MEDS ORDERED: POTASSIUM BICARB 20meq eff tab 20 MEQ TABLET.EFF NG PRN (14:44)
[2023-12-30] MEDS: potassium Cl 40MEQ/270ML bag 250 ML IV PRN (16:16)
[2023-12-30] MEDS: acetaminophen 325mg/10.15ml oral unit dose solution NG PRN (19:38)
[2023-12-30] MEDS: sennosides/docusate sodium tablet NG SCH (19:39)
[2023-12-30] MEDS: linezolid 600mg/300ml PREMIX 300 ML IV SCH (19:39)
[2023-12-30] MEDS: spironolactone 25 MG tablet NG SCH (19:40)
[2023-12-31] VITALS (47 sets, daily range): BP systolic 92–141; BP diastolic 45–74; PULSE 59–85; RESP 12–24; O2SAT 94–99
[2023-12-31 02:37] LABS: BASOPHILS # (AUTO) 0.1 X10'3 (0-0.2); BASOPHILS % (AUTO) 0.7 % (0-1); EOSINOPHILS # (AUTO) 0.3 X10'3 (0-0.9); EOSINOPHILS % (AUTO) 2.6 % (0-6); HEMATOCRIT 27.4 % (42.0-52.0); HEMOGLOBIN 8.9 g/dl (14.0-17.9); LYMPHOCYTES # (AUTO) 1.4 X10'3 (1.1-4.8); LYMPHOCYTES % (AUTO) 11.3 % (21-51); MEAN CORPUSCULAR HGB CONC 32.5 g/dL (33.0-36.5); MEAN CORPUSCULAR VOLUME 89.2 FL (78-98); MEAN PLATELET VOLUME 9.3 FL (7.4-10.4); MONOCYTES # (AUTO) 1.3 X10'3 (0-0.9); MONOCYTES % (AUTO) 10.7 % (2-12); NEUTROPHILS % (AUTO) 74.7 % (42-75); PLATELET COUNT 199 X10'3 (140-440); RED BLOOD COUNT 3.07 X10'6 (4.70-6.10); RED CELL DISTRIBUTION WIDTH 14.6 % (11.5-14.5); WHITE BLOOD COUNT 12.1 X10'3 (4.5-11.0)
[2023-12-31 02:55] LABS: ALBUMIN 1.9 G/DL (3.4-5.0); ANION GAP 6 (8-16); BLOOD UREA NITROGEN 14 MG/DL (7-18); BUN/CREATININE RATIO 21.9 (10.0-20.0); CALCIUM 7.1 MG/DL (8.5-10.1); CHLORIDE 102 MMOL/L (99-107); CREATININE 0.64 MG/DL (0.60-1.10); GLUCOSE 172 MG/DL (70-104); MAGNESIUM 2.1 MG/DL (1.5-2.4); PHOSPHORUS 3.6 MG/DL (2.3-4.5); POTASSIUM 3.8 MMOL/L (3.5-5.1); SODIUM 134 MMOL/L (135-145); TOTAL CARBON DIOXIDE 25.8 MMOL/L (24-32); eCRCL 162 ML/MIN; eGFR > 90 ML/MIN
[2023-12-31] MEDS: magnesium 2GM in 50ml NS 50 ML IV PRN (03:30)
[2023-12-31 03:37] LABS: ABG BASE EXCESS 0.1 mmol/L (-2.0-2.0); ABG HCO3 23.3 mmol/L (22.0-26.0); ABG OXYGEN SATURATION 97.8 % (94-97); ABG PCO2 (T) 34.6 mmHg (35.0-48.0); ABG PH (T) 7.452 (7.340-7.440); ABG PO2 (T) 103.9 mmHg (75.0-100.0); FCOHb 0.3 % (0.0-3.9); FHHb 2.2 % (0.0-5.0); FMetHb 0.3 % (0.0-1.5); FO2Hb 97.2 % (94-97); MODE VENT - SIMV VC; PATIENT TEMPERATURE 38.7; PEEP 10 cm H2O; RESPIRATORY RATE 12 b/min; TIDAL VOLUME 500 mL; TOTAL HEMOGLOBIN 9.7 G/dl (14.0-17.9)
[2023-12-31] MEDS: HYDROcodone/acetaminophen 7.5MG/325MG per 15ml UD CUP NG PRN ×2 (04:41→11:52)
[2023-12-31] MEDS: fluconazole-Diflucan 100MG/NS 50 ML IV SCH (08:04)
[2023-12-31] MEDS: magnesium hydroxide 30ml (MOM) UD suspension NG PRN (08:05)
[2023-12-31] MEDS: lansoprazole 15mg solutab NG SCH (08:05)
[2023-12-31] MEDS ORDERED: methylPREDNISolone sod succ 125mg/2ml vial IV SCH (09:00)
[2023-12-31] MEDS: methylPREDNISolone sod succ/PF 40mg inj. IV SCH (16:34)
[2023-12-31] MEDS ORDERED: lactobacillus rhamnosus 10,000 MMU CELLS/CAPSULE PO SCH (20:00)
[2023-12-31] MEDS: lactobacillus rhamnosus 10,000 MMU CELLS/CAPSULE NG SCH (20:22)
[2023-12-31] MEDS: enoxaparin 40mg/0.4ml syringe SUBCUT SCH (20:23)
[2024-01-01] VITALS (42 sets, daily range): BP systolic 110–149; BP diastolic 50–86; PULSE 54–123; RESP 9–25; TEMP 97.7; O2SAT 91–100
[2024-01-01 03:28] LABS: BASOPHILS % (AUTO) 0.1 % (0-1); EOSINOPHILS % (AUTO) 0.2 % (0-6); LYMPHOCYTES # (AUTO) 0.8 X10'3 (1.1-4.8); LYMPHOCYTES % (AUTO) 6.4 % (21-51); MEAN CORPUSCULAR HGB CONC 32.3 g/dL (33.0-36.5); MEAN CORPUSCULAR VOLUME 89.7 FL (78-98); MEAN PLATELET VOLUME 8.7 FL (7.4-10.4); MONOCYTES # (AUTO) 0.5 X10'3 (0-0.9); MONOCYTES % (AUTO) 4.1 % (2-12); NEUTROPHILS # (AUTO) 11.2 X10'3 (1.8-7.7); NEUTROPHILS % (AUTO) 89.2 % (42-75); PLATELET COUNT 219 X10'3 (140-440); RED BLOOD COUNT 3.12 X10'6 (4.70-6.10); RED CELL DISTRIBUTION WIDTH 14.7 % (11.5-14.5); WHITE BLOOD COUNT 12.6 X10'3 (4.5-11.0)
[2024-01-01 03:39] LABS: ALBUMIN 2.1 G/DL (3.4-5.0); ANION GAP 5 (8-16); BLOOD UREA NITROGEN 11 MG/DL (7-18); CALCIUM 7.2 MG/DL (8.5-10.1); CHLORIDE 104 MMOL/L (99-107); GLUCOSE 143 MG/DL (70-104); MAGNESIUM 2.3 MG/DL (1.5-2.4); PHOSPHORUS 3.8 MG/DL (2.3-4.5); POTASSIUM 3.8 MMOL/L (3.5-5.1); SODIUM 136 MMOL/L (135-145); TOTAL CARBON DIOXIDE 27.1 MMOL/L (24-32); eCRCL 207 ML/MIN; eGFR > 90 ML/MIN
[2024-01-01 03:54] LABS: ABG BASE EXCESS -2.1 mmol/L (-2.0-2.0); ABG HCO3 22.4 mmol/L (22.0-26.0); ABG OXYGEN SATURATION 96.8 % (94-97); ABG PCO2 (T) 37.7 mmHg (35.0-48.0); ABG PH (T) 7.393 (7.340-7.440); FCOHb 0.3 % (0.0-3.9); FHHb 3.2 % (0.0-5.0); FMetHb 0.3 % (0.0-1.5); FO2Hb 96.2 % (94-97); PATIENT TEMPERATURE 37.2; PEEP 8 cm H2O; RESPIRATORY RATE 12 b/min; TIDAL VOLUME 500 mL; TOTAL HEMOGLOBIN 10.4 G/dl (14.0-17.9)
[2024-01-01] MEDS: potassium Cl 20mEq/100mL bag 100 ML IV PRN (04:49)
[2024-01-01 04:53] LABS: TOTAL CELLS COUNTED 100
[2024-01-01 04:55] LABS: PLATELET ESTIMATE NORMAL
[2024-01-01] MEDS ORDERED: DEXTROSE 15 GM of carb/4 tabs (each vial/BOTTLE has 4 tablets) PO PRN ×2 (07:30)
[2024-01-01] MEDS: INSULIN LISPRO 100 UNIT/ML INSULN.PEN MULTI-DOSE SQ SCH ×4 (07:30→18:54)
[2024-01-01] MEDS ORDERED: glucagon, human recombinant 1mg kit SUBCUT PRN (07:30)
[2024-01-01] MEDS ORDERED: dextrose 50%-water 50ml dispensing syringe IV PRN ×2 (07:30)
[2024-01-01] MEDS: spironolactone 25 MG tablet NG SCH (08:32)
[2024-01-01] MEDS: insulin glargine (Lantus) pen - multi-dose SQ SCH (08:34)
[2024-01-01] MEDS: ondansetron/PF 4mg/2ml inj IV PRN (15:03)
[2024-01-01] MEDS: NUT.TX.GLUC.INTOLER,LAC-FR,SOY (GLUCERNA) 237 ML PO SCH (17:35)
[2024-01-02] VITALS (19 sets, daily range): BP systolic 113–136; BP diastolic 68–91; PULSE 84–96; RESP 14–18; TEMP 97.7–98.8; O2SAT 91–96
[2024-01-02] MEDS: HYDROcodone/acetaminophen 7.5MG/325MG per 15ml UD CUP PO PRN (00:49)
[2024-01-02 05:26] LABS: MAGNESIUM 2.3 MG/DL (1.5-2.4); POTASSIUM 4.3 MMOL/L (3.5-5.1); PREALBUMIN 9.8 MG/DL (19-36)
[2024-01-02 11:55] LABS: BASOPHILS % (AUTO) 0.2 % (0-1); EOSINOPHILS % (AUTO) 0 % (0-6); HEMATOCRIT 32.8 % (42.0-52.0); HEMOGLOBIN 10.6 g/dl (14.0-17.9); LYMPHOCYTES # (AUTO) 1.4 X10'3 (1.1-4.8); MEAN CORPUSCULAR HGB CONC 32.2 g/dL (33.0-36.5); MEAN CORPUSCULAR VOLUME 89.9 FL (78-98); MEAN PLATELET VOLUME 8.2 FL (7.4-10.4); MONOCYTES # (AUTO) 1.4 X10'3 (0-0.9); MONOCYTES % (AUTO) 7.5 % (2-12); NEUTROPHILS # (AUTO) 15.3 X10'3 (1.8-7.7); NEUTROPHILS % (AUTO) 84.3 % (42-75); PLATELET COUNT 388 X10'3 (140-440); RED BLOOD COUNT 3.65 X10'6 (4.70-6.10); RED CELL DISTRIBUTION WIDTH 14.8 % (11.5-14.5); WHITE BLOOD COUNT 18.1 X10'3 (4.5-11.0)
[2024-01-02 12:13] LABS: ALANINE AMINOTRANSFERASE 14 U/L (12-78); ALBUMIN 2.4 G/DL (3.4-5.0); ALBUMIN/GLOBULIN RATIO 0.6 (1.1-1.5); ALKALINE PHOSPHATASE 118 IU/L (46-116); ANION GAP 3 (8-16); ASPARTATE AMINO TRANSFERASE 11 U/L (10-37); BILIRUBIN,TOTAL 0.3 MG/DL (0.1-1.0); BLOOD UREA NITROGEN 19 MG/DL (7-18); BUN/CREATININE RATIO 23.5 (10.0-20.0); CALCIUM 7.5 MG/DL (8.5-10.1); CHLORIDE 101 MMOL/L (99-107); CREATININE 0.81 MG/DL (0.60-1.10); GLUCOSE 364 MG/DL (70-104); POTASSIUM 4.2 MMOL/L (3.5-5.1); SODIUM 134 MMOL/L (135-145); TOTAL PROTEIN 6.1 G/DL (6.4-8.2); eCRCL 128 ML/MIN; eGFR > 90 ML/MIN
[2024-01-02] MEDS: INSULIN LISPRO 100 UNIT/ML INSULN.PEN MULTI-DOSE SQ SCH ×2 (14:08→19:25)
[2024-01-02] MEDS: acetaminophen 325mg/10.15ml oral unit dose solution NG PRN (17:25)
[2024-01-02] MEDS: insulin glargine (Lantus) pen - multi-dose SQ SCH (19:29)
[2024-01-03] VITALS (9 sets, daily range): BP systolic 109–140; BP diastolic 69–82; PULSE 80–102; RESP 15–23; TEMP 97.4–98.8; O2SAT 91–97
[2024-01-03 03:47] LABS: BASOPHILS % (AUTO) 0.3 % (0-1); EOSINOPHILS % (AUTO) 0.1 % (0-6); HEMATOCRIT 32.3 % (42.0-52.0); HEMOGLOBIN 10.5 g/dl (14.0-17.9); LYMPHOCYTES # (AUTO) 3.2 X10'3 (1.1-4.8); LYMPHOCYTES % (AUTO) 17.4 % (21-51); MEAN CORPUSCULAR HEMOGLOBIN 29.3 PG (27.0-31.0); MEAN CORPUSCULAR HGB CONC 32.6 g/dL (33.0-36.5); MEAN CORPUSCULAR VOLUME 89.9 FL (78-98); MEAN PLATELET VOLUME 8.2 FL (7.4-10.4); MONOCYTES # (AUTO) 1.8 X10'3 (0-0.9); MONOCYTES % (AUTO) 9.7 % (2-12); NEUTROPHILS # (AUTO) 13.4 X10'3 (1.8-7.7); NEUTROPHILS % (AUTO) 72.5 % (42-75); PLATELET COUNT 425 X10'3 (140-440); RED BLOOD COUNT 3.59 X10'6 (4.70-6.10); RED CELL DISTRIBUTION WIDTH 14.5 % (11.5-14.5); WHITE BLOOD COUNT 18.5 X10'3 (4.5-11.0)
[2024-01-03 04:00] LABS: ALBUMIN 2.6 G/DL (3.4-5.0); ANION GAP 8 (8-16); BLOOD UREA NITROGEN 19 MG/DL (7-18); BUN/CREATININE RATIO 22.4 (10.0-20.0); CALCIUM 7.6 MG/DL (8.5-10.1); CHLORIDE 100 MMOL/L (99-107); CREATININE 0.85 MG/DL (0.60-1.10); GLUCOSE 146 MG/DL (70-104); MAGNESIUM 2.1 MG/DL (1.5-2.4); PHOSPHORUS 2.8 MG/DL (2.3-4.5); SODIUM 136 MMOL/L (135-145); TOTAL CARBON DIOXIDE 27.9 MMOL/L (24-32); eCRCL 122 ML/MIN; eGFR > 90 ML/MIN
[2024-01-03 05:25] LABS: PLATELET ESTIMATE NORMAL; TOTAL CELLS COUNTED 100
[2024-01-03 05:27] LABS: POLYCHROMASIA FEW; STOMATOCYTES 1+
[2024-01-03] MEDS: INSULIN LISPRO 100 UNIT/ML INSULN.PEN MULTI-DOSE SQ SCH (07:30)
[2024-01-03] MEDS: lactobacillus rhamnosus 10,000 MMU CELLS/CAPSULE PO SCH (07:48)
== END 2024-01-03 18:15 | DRG 710 ==
LOC: ER 10:34 → ED HOLD 16:29 → ORTHO 4S 23:55 → CICU 2S 12-28 21:35 → PCU 3S 01-01 21:30
PROVIDERS: ADMIT Family Medicine; ATTEND Family Medicine
PROC: 0BNC4ZZ Release Right Upper Lung Lobe, Percutaneous Endoscopic Approach (ICD-10-PCS; 2023-12-28)
PROC: 0BND4ZZ Release Right Middle Lung Lobe, Percutaneous Endoscopic Approach (ICD-10-PCS; 2023-12-28)
PROC: 0BJ08ZZ Inspection of Tracheobronchial Tree, Via Natural or Artificial Opening Endoscopic (ICD-10-PCS; 2023-12-28)
PROC: 0BNF4ZZ Release Right Lower Lung Lobe, Percutaneous Endoscopic Approach (ICD-10-PCS; principal; 2023-12-28 18:28)
PROC: 0B948ZZ Drainage of Right Upper Lobe Bronchus, Via Natural or Artificial Opening Endoscopic (ICD-10-PCS; 2023-12-30)
PROC: 0B968ZZ Drainage of Right Lower Lobe Bronchus, Via Natural or Artificial Opening Endoscopic (ICD-10-PCS; 2023-12-30)
PROC: 0B958ZZ Drainage of Right Middle Lobe Bronchus, Via Natural or Artificial Opening Endoscopic (ICD-10-PCS; 2023-12-30)
PROC: 02HV33Z Insertion of Infusion Device into Superior Vena Cava, Percutaneous Approach (ICD-10-PCS; 2024-01-01)
DX: A41.9 Sepsis, unspecified organism (principal); J86.9 Pyothorax without fistula; J95.821 Acute postprocedural respiratory failure; D82.1 Di George's syndrome; J15.9 Unspecified bacterial pneumonia; E87.1 Hypo-osmolality and hyponatremia; I95.9 Hypotension, unspecified; Z20.822 Contact with and (suspected) exposure to COVID-19; E86.0 Dehydration; W01.0XXA Fall on same level from slipping, tripping and stumbling without subsequent striking against object, initial encounter; I10 Essential (primary) hypertension; B95.4 Other streptococcus as the cause of diseases classified elsewhere; E11.65 Type 2 diabetes mellitus with hyperglycemia; Z80.6 Family history of leukemia; Z88.0 Allergy status to penicillin; Z83.3 Family history of diabetes mellitus; Z86.73 Personal history of transient ischemic attack (TIA), and cerebral infarction without residual deficits; Z81.1 Family history of alcohol abuse and dependence; Y93.89 Activity, other specified; Y92.89 Other specified places as the place of occurrence of the external cause; Y99.8 Other external cause status
CPT/HCPCS: 31645; 36415; 36600; 71045; 71260; 74177; 76942; 80048; 80053; 80076; 81001; 82009; 82803; 82948; 83036; 83605; 83690; 83735; 84100; 84132; 84134; 84145; 84478; 85007; 85018; 85025; 85384; 85610; 85730; 86885; 86900; 86901; 86920; 87040; 87070; 87075; 87077; 87081; 87102; 87186; 87811; 93005; 94002; 94003; 94640; 94760; 97116; 97161; 97530; 97535; 99285; A4215; A4314; A4333; A4615; A4618; A5200; A6213; A6250; A6258; A6449; A7000; A7015; A7048; C1751; C1758; G0378; J0131; J0171; J0456; J0610; J0696; J0780; J1170; J1200; J1450; J1650; J1756; J1815; J1885; J1940; J2020; J2250; J2270; J2405; J2704; J2920; J3010; J3370; J3475; J3480; J3490; J7030; J7040; J7050; J7120; P9045; P9047; Q9963; Q9967

== ENCOUNTER 2024-01-14 10:22 | Outpatient (CLI) | payer MEDICAID ==
[~2024-01-14 10:22] MED LIST changes: -AMLO5TAB16 PO; -ATOR10TA PO; -CLOP75TA34 PO; -METF-517 PO
== END 2024-01-14 23:59 | disposition home or self-care (01) ==
LOC: RAD 10:22
PROVIDERS: ATTEND Thoracic Surgery (Cardiothoracic Vascular Surgery)
DX: J43.9 Emphysema, unspecified (principal); J81.1 Chronic pulmonary edema; J90 Pleural effusion, not elsewhere classified
CPT/HCPCS: 71046

== ENCOUNTER 2025-02-18 06:04 | Emergency (ER) | payer MEDICAID ==
[~2025-02-18] VITALS: Ht 180.3 cm; Wt 94.1 kg
[2025-02-18] MEDS: morphine 4 MG/ML inj SYRINge IV ONE (07:35)
[2025-02-18] MEDS: ondansetron/PF 4mg/2ml inj IV ONE (07:35)
[2025-02-18 07:44] LABS: MEAN PLATELET VOLUME 10.4 FL (7.4-10.4); RED CELL DISTRIBUTION WIDTH 15.1 % (11.5-14.5)
--- NOTE | 2025-02-18 07:56 | Physician Documentation ---
History of Present Illness ~ Chief Complaint: Ear Pain Stated Complaint: EAR INFECTION Time Seen by MD: 07:13 OK to notify your PCP?: Yes Primary Medical Doctor: NONE Source: patient Mode of Arrival: POV Exam Limitations: no limitations HPI Chief Complaint: Left ear pain Caveat: None Independent Historians: None History of Present Illness: Patient is a 44-year-old man with a history of mastoidectomy as a child on the left. Patient comes in complaining of worsening severe left ear pain that began two weeks ago. Patient was started on ciprofloxacin eardrops two weeks ago and then a week later placed on Cipro dexamethasone eardrops. Symptoms have been getting worse. Patient complains of severe constant left ear pain. Patient also complains of drainage and pus out of the left ear. Patient also complains of swelling and redness behind the left ear. Review of systems: All systems were reviewed and are negative except for what is indicated in the history of present illness. Past Medical History: Type 2 diabetes Past Surgical History: Mastoidectomy in childhood Social History: No tobacco use, no alcohol use, no drug use Medications: Reviewed as documented Nursing Notes Allergies: Reviewed as documented in Nursing Notes Medication Reconciliation Allergies: Coded Allergies: Penicillins (Verified Allergy, Unknown, 08/29/23) Scheduled Aspirin (Ecotrin*), 1 TAB PO DAILY Escitalopram Oxalate (Escitalopram Oxalate), 1 TAB PO DAILY, (Reported) Lisinopril (Lisinopril), 10 MG PO DAILY Past Medical History Past Medical History: Diabetes Past Surgical History: noncontributory Patient History: ETOH ETOH FH: alcoholism FATHER, Name: father, FH: diabetes mellitus FATHER, Name: father, FH: leukemia Maternal grandmother Alcohol Use: None Lives with: Family Lives In: Home Review of Systems All Other Systems at this time: Reviewed and Negative ROS Patient denies any other acute symptoms other than above. All other systems are negative Physical Exam Vital Signs: RN Vital Signs have been reviewed: Yes, Temperature: 98.8, Source: Temporal, Heart Rate: 86, Respiratory Rate: 18, BP: 164/102, Pulse Oximetry: 97, Weight: 94.090 Oxygen Flow Rate: 0 Pulse Oximetry Reflects: adequate oxygenation Physical Exam General Appearance: MODERATE DISTRESS HEENT: Normal OP, moist oral mucosa, PERRL, EOMI, LEFT EXTERNAL EAR CANAL IS SWOLLEN AND FILLED WITH PUS. THE EAR ITSELF/LOPEZ IS ALSO SWOLLEN AND TENDER WITH SOME MILD ERYTHEMA. THE MASTOID SHOWS A OLD SURGICAL SCAR. SIGNIFICANT ERYTHEMA AND SWELLING OVER THE MASTOID AND BEHIND THE EAR. THIS ENTIRE AREA IS TENDER TO PALPATION. Neck: supple, normal ROM, trachea midline Pulmonary: No respiratory distress, CTA, BS equal Cardiac: RRR, no murmur, rub or gallop, GI: nondistended, soft, nontender, normal bowel sounds, no guarding, no rebound Extremities: normal ROM, no swelling, non-tender Skin: intact, dry, warm, no rashes Neuro: AAOx3, speech is clear, no focal motor weakness Psych: normal affect, good eye contact, no apparent hallucination, normal speech Progress Results/Orders Results/Orders Orders - JOSE JIANG MD Monitor (02/18/25 07:17) Saline Lock (02/18/25 07:17) Ct Mastoids/Ear (02/18/25 08:06) Completed Orders - JOSE JIANG MD Cbc/Diff (02/18/25 07:17) CMP (02/18/25 07:17) Morphine 4mg/Ml Inj. (Morphine Inj.) (02/18/25 07:20) Ondansetron Inj. (Zofran 4mg/2ml Vial) (02/18/25 07:20) Ct Mastoids/Ear (02/18/25 08:06) Cefepime 2g/Ns 100ml Advantage (Maxipime (02/18/25 08:00) Morphine 10mg/Ml Inj. (Morphine Inj.) (02/18/25 08:20) Cefepime 2gm In D5w 50ml (Cefepime-D5w 2 (02/18/25 08:19) Hydromorphone 1 Mg/Ml/Pf (Dilaudid Inj.) (02/18/25 10:20) Vancomycin 1,500mg Inj. (Vancomycin 1,50 (02/18/25 10:18) Vancomycin/H2o 1.5g/300ml Pb (Vancomycin (02/18/25 10:32) Medications Received in ER Medications (Trade) Dose Ordered Sig/Adin Route PRN Reason Start Time Stop Time Status Last Admin Dose Admin (morphine inj.) 4 mg ONCE ONCE IV 02/18/25 07:20 02/18/25 07:21 DC 02/18/25 07:35 4 MG (Zofran 4mg/2ml vial) 4 mg ONCE ONCE IV 02/18/25 07:20 02/18/25 07:23 DC 02/18/25 07:35 4 MG (morphine inj.) 6 mg ONCE ONCE IV 02/18/25 08:20 02/18/25 08:21 DC 02/18/25 08:33 6 MG Cefepime/Dextrose 50 ml @ 100 mls/hr Q12H ONCE IV 02/18/25 08:19 02/18/25 08:29 DC 02/18/25 08:32 100 MLS/HR (Dilaudid inj.) 1 mg ONCE ONCE IV 02/18/25 10:20 02/18/25 10:21 DC 02/18/25 10:24 1 MG Vancomycin HCl 300 ml @ 150 mls/hr ONCE STAT IV 02/18/25 10:32 02/18/25 12:17 DC 02/18/25 11:25 150 MLS/HR Vital Signs 02/18/25 02/18/25 02/18/25 02/18/25 06:29 08:21 08:30 09:30 Temp 98.8 Pulse 86 89 82 Resp 18 15 16 B/P (MAP) 164/102 138/79 (98) 135/78 (97) Pulse Ox 97 96 96 O2 Flow Rate 0 0 0 02/18/25 02/18/25 02/18/25 02/18/25 10:33 11:30 12:08 13:30 Pulse 86 92 89 94 Resp 15 10 16 18 B/P (MAP) 135/85 (102) 128/80 (96) 140/77 (98) 161/93 (115) Pulse Ox 96 97 95 92 O2 Flow Rate 0 0 0 0 Laboratory Tests Test 02/18/25 07:35 White Blood Count 9.9 Red Blood Count 4.87 Hemoglobin 13.8 L Hematocrit 41.2 L Mean Corpuscular Volume 84.4 Mean Corpuscular Hemoglobin 28.4 Mean Corpuscular Hemoglobin Concent 33.7 Red Cell Distribution Width 15.1 H Platelet Count 107 L Mean Platelet Volume 10.4 Neutrophils (%) (Auto) 67.3 Lymphocytes (%) (Auto) 19.0 L Monocytes (%) (Auto) 9.0 Eosinophils (%) (Auto) 4.2 Basophils (%) (Auto) 0.5 Neutrophils # (Auto) 6.7 Lymphocytes # (Auto) 1.9 Monocytes # (Auto) 0.9 Eosinophils # (Auto) 0.4 Basophils # (Auto) 0.0 CBC Comment Sodium Level 137 Potassium Level 3.9 Chloride Level 101 Carbon Dioxide Level 28.0 Anion Gap 8 Blood Urea Nitrogen 10 Creatinine 0.88 Estimated GFR/1.73 m2 > 90 BUN/Creatinine Ratio 11.4 Glucose Level 263 H Calcium Level 8.8 Total Bilirubin 0.6 Aspartate Amino Transf (AST/SGOT) 12 Alanine Aminotransferase (ALT/SGPT) 30 Alkaline Phosphatase 90 Total Protein 8.0 Albumin 3.7 Globulin 4.3 Albumin/Globulin Ratio 0.9 L Chemistry Comments Medical Decision Making Findings Differential diagnosis includes but is not limited to: External otitis, mastoiditis, cellulitis, abscess necrotizing/malignant otitis externa, osteomyelitis CT scan of left ear and mastoid, impression: Mastoiditis Impression: 1. Extensive opacification involving the left external auditory canal, middle ear cavity, mastoidectomy site, residual mastoid air cells, and contiguous with soft tissue edema and inflammatory changes in the left temporal scalp and external ear, suspected combined otomastoiditis and otitis externa in the setting of clinical signs of infection. Small locules of gas are seen within the soft tissues adjacent to the left external ear. Necrotizing infection not excluded. 2. Possible erosive changes in the tegmen tympani. Laboratory data independent interpretation: CBC: Unremarkable CMP: Serum glucose 263 otherwise unremarkable Emergency department course/medical decision-making: Patient presents clinically with a severe external otitis with the associated mastoiditis on the left. Patient will require IV antibiotics and coverage for Pseudomonas. Patient has a penicillin allergy. Patient will be placed on cefepime. Patient given for morphine and six and morphine IV with no relief of pain. Dilaudid 1 mg IV has been ordered. Additional Dilaudid will be tried if the 1 mg does not work. Patient has severe mastoiditis and possible necrotizing mastoiditis and involvement of the tegmen tympani. Patient will require transfer to a higher level care. IV vanco has been also added. Test results, treatment plan and all the above was discussed with the patient. Patient got better pain control with the Dilaudid. Consultation/communications: 10:20 a.m.: Case discussed with the radiologist. Findings consistent with otitis externa and mastoiditis. There are some locules of gas that can not rule out otitis 10:25 a.m.: Request for transfer to higher level care 12:00 p.m.: Case discussed with [facility] transfer center. Awaiting a call back. 2:29 p.m.: Paramedics are here for transfer. Apparently the patient has been accepted by the hospitalist at [facility]. Departure Time of Disposition: 14:28 Disposition: 02 SHORT TERM HOSPITAL Impression: Primary Impression: Mastoiditis of left side Education Educated: Patient Educated regarding: diagnosis, treatment Signature Scribe Signature: No scribe Attestation: No scribe JOSE JIANG MD Feb 18, 2025 07:56
[2025-02-18] MEDS ORDERED: cefepime 2g/NS 100ml ADVANTAGE 100 ML IV ONE (08:00)
[2025-02-18 08:02] LABS: CREATININE 0.88 MG/DL (0.60-1.10); TOTAL CARBON DIOXIDE 28.0 MMOL/L (24-32); eCRCL 116 ML/MIN; eGFR > 90 ML/MIN
[2025-02-18] MEDS: CEFEPIME 2gm in D5W 50mL 50 ML IV ONE (08:32)
[2025-02-18] MEDS: morphine 10mg/ml inj. IV ONE (08:33)
[2025-02-18] MEDS ORDERED: VANCOMYCIN 1,500MG inj. 1,500 MG in normal saline 500ml IV soln 300 ML IV STA (10:18)
--- NOTE | 2025-02-18 10:21 | RADIOLOGY REPORT ---
CLINICAL INFORMATION: Severe left ear pain, infection. TECHNIQUE: Axial CT images were obtained without contrast through the temporal bones and displayed a t 0.75 mm slice thickness. Coronal and sagittal reformatted images were made, stored and reviewed. All CT scans at this medical facility are performed using dose modulation techniques as appropriate to a performed exam including the following: Automated exposure control was utilized; adjustment of t he MA and/or KV according to patient size; and use of iterative reconstruction technique. CTDIvol = 63.02 mGy DLP = 767.22 mGy-cm COMPARISON: CT head dated 08/28/2023. FINDINGS: Right temporal bone: External auditory canal: Unremarkable. Tympanic membrane: Unremarkable. Tympanic cavity: Unremarkable. Ossicles are intact and otherwise unremarkable. No soft tissue density within the epitympanum. No erosive change at the scutum. Cochlea: Unremarkable. Semicircular canals: Unremarkable. Internal auditory canal: Unremarkable. Vestibular aqueduct: Unremarkable. Carotid canal: Unremarkable. Jugular bulb: Within normal limits. No high riding jugular bulb or dehiscence. Facial nerve: Unremarkable appearance of the labyrinthine segment, genu, tympanic segment, and mastoi d segment. Antrum: Normal. Mastoid air cells: Unremarkable. Left temporal bone: External auditory canal: Completely opacified. Tympanic membrane: Not visualized due to complete opacification of the external auditory canal and m iddle ear cavity. Tympanic cavity: Completely opacified. Possible erosive changes of the tegmen tympani. Middle ear oss icles appear intact. Cochlea: Unremarkable. Semicircular canals: Unremarkable. Internal auditory canal: Unremarkable. Vestibular aqueduct: Unremarkable. Carotid canal: Unremarkable. Jugular bulb: Within normal limits. No high riding jugular bulb or dehiscence. Facial nerve: Unremarkable appearance of the labyrinthine segment, genu, tympanic segment, and mastoi d segment. Antrum: Postsurgical changes of prior mastoidectomy. Mastoid air cells: Postsurgical changes of prior canal wall up mastoidectomy. There is complete opaci fication of the mastoidectomy site residual mastoid air cells, contiguous with soft tissue inflammato ry changes in the adjacent portions of the scalp and external ear. The opacification in the mastoidec amado site is also contiguous with the opacification of the middle ear cavity. There also small locule s of gas within the soft tissues lateral to the mastoidectomy site and left external auditory canal. IMPRESSION: 1. Extensive opacification involving the left external auditory canal, middle ear cavity, mastoidecto my site, residual mastoid air cells, and contiguous with soft tissue edema and inflammatory changes i n the left temporal scalp and external ear, suspected combined otomastoiditis and otitis externa in t he setting of clinical signs of infection. Small locules of gas are seen within the soft tissues piter cent to the left external ear. Necrotizing infection not excluded. 2. Possible erosive changes in the tegmen tympani. Critical findings Critical Result: Findings consistent with combined otomastoiditis and otitis externa. Necrotizing inf ection not excluded. Findings discussed with JOSE MAZA at 02/18/2025 12:18 PM CDT, and acknowledged receipt and un derstanding of the findings. ..
[2025-02-18] MEDS: VANCOMYCIN/H2O 1.5g/300mL PB 300 ML IV STA (11:25)
[2025-02-18 14:43] VITALS: BP 142/86; PULSE 90; RESP 18; TEMP 98.8; O2SAT 94
== END 2025-02-18 14:45 | disposition short-term general hospital (02) ==
LOC: ER 06:04
DX: H70.92 Unspecified mastoiditis, left ear (principal); E11.9 Type 2 diabetes mellitus without complications; Z88.0 Allergy status to penicillin; Z79.82 Long term (current) use of aspirin
CPT/HCPCS: 36415; 70480; 80053; 85025; 96365; 96366; 96367; 96375; 96376; 99285; J0692; J1171; J2270; J2274; J2405; J3372; J7030